=== PATIENT | female | born 1950 | race Caucasian/White ===

== ENCOUNTER 2022-09-09 12:09 | Emergency (ER) | payer OTHER, SELFPAY ==
[2022-09-09 12:17] VITALS: BP 173/79; PULSE 60; RESP 18; TEMP 36.6; O2SAT 99; BMI 26.5
--- NOTE | 2022-09-09 12:25 | DI.RAD.S_ITS ---
PROCEDURE: XR ANKLE LT MIN 3V INDICATIONS: fall. posterior L ankle swelling TECHNIQUE: 3 views of the ankle were acquired. COMPARISON: None. FINDINGS: Bones: No fractures or dislocations. Ankle mortise is normally aligned. No suspicious bony lesions. Soft tissues: Large tibiotalar joint effusion. Achilles tendon appears normal. IMPRESSION: Large tibiotalar effusion, without displaced fracture. Dictated by: Dilan Craig M.D. on 09/09/2022 at 13:57 Approved by: Dilan Craig M.D. on 09/09/2022 at 13:57
--- NOTE | 2022-09-09 13:20 | ED_ITS ---
HPI - Extremity Injury (Lower) <Luis Grajeda PA-C - Last Filed: 09/09/22 18:10> General Chief Complaint: Extremity Injury, Lower Stated Complaint: fell, lt ankle injury Time Seen by Provider: 09/09/22 13:10 Source: patient and family Mode of arrival: Wheelchair History of Present Illness HPI Narrative: This is a 72-year-old female presents emergency department due to left ankle pain onset just prior to arrival. States that she was walking when her ankle? just slip?. She is having some left ankle pain now. Denies any numbness, weakness, or any other concerning signs or symptoms. Some pain to the lateral malleolus of the left ankle. Related Data Allergies Allergy/AdvReac Type Severity Reaction Status Date / Time lisinopril AdvReac Intermediate Cough Verified 09/09/22 12:25 Review of Systems <Luis Grajeda PA-C - Last Filed: 09/09/22 18:10> Review of Systems Narrative: GENERAL: Denies chills, fatigue, malaise, fever, sweats. HEENT: Denies sinus pain, ear pain, sore throat, difficulty swallowing, dizziness. RESPIRATORY: Denies dyspnea, cough, wheezing, hemoptysis, sputum. CARDIOVASCULAR: Denies chest pain, palpitations, orthopnea, edema, GASTROINTESTINAL: Denies nausea, vomiting, abdominal pain, diarrhea, constipat ion, melena. : Denies dysuria, frequency, incontinence, hematuria, urinary retention. MUSCULOSKELETAL: Left ankle pain SKIN: Denies rash, skin lesions, or other NEUROLOGIC: Denies weakness, headache, numbness, change in speech, confusion, seizures, incoordination. PSYCHIATRIC: No concerning psychosocial issues. 12 point review of systems is negative except for those stated above Patient History <Luis Grajeda PA-C - Last Filed: 09/09/22 18:10> Social History Smoking Status: Never smoker Smoking Status: Never smoker alcohol intake frequency: 0-2 drinks per day Substance Use Type: does not use Exam <ALTAGRACIA Bellamy Last Filed: 09/09/22 18:10> Narrative Exam Narrative: GENERAL: Well-developed patient, in mild distress. HEAD: Atraumatic. Normocephalic. EYES: Pupils equal round and reactive. Extraocular motions intact. No scleral icterus. No injection or drainage. ENT: Nose without bleeding, purulent drainage. Throat without erythema, tonsillar hypertrophy or exudate. Airway patent. NECK: Trachea midline. Non tender CARDIOVASCULAR: Regular rate and rhythm without murmurs, gallops, or rubs. RESPIRATORY: Clear to auscultation. Breath sounds equal bilaterally. No wheezes, rales, or rhonchi. GASTROINTESTINAL: Abdomen soft, non-tender, nondistended. EXTREMITIES: Tenderness to palpation to the lateral malleolus. Neurovascularly intact throughout. 2+ dorsalis pedis pulses. No crepitus BACK: Nontender without deformity or crepitance. No flank tenderness. NEURO: AOx3. SKIN: No rash or erythema of visible areas Initial Vital Signs Initial Vital Signs: Vital Signs Temperature 97.9 F 09/09/22 12:17 Pulse Rate 60 09/09/22 12:17 Respiratory Rate 18 09/09/22 12:17 Blood Pressure 173/79 H 09/09/22 12:17 Pulse Oximetry 99 09/09/22 12:17 Oxygen Delivery Method Room Air 09/09/22 12:17 <DO Beka Rg Last Filed: 09/09/22 19:02> Initial Vital Signs Initial Vital Signs: Vital Signs Temperature 97.9 F 09/09/22 12:17 Pulse Rate 60 09/09/22 12:17 Respiratory Rate 18 09/09/22 12:17 Blood Pressure 173/79 H 09/09/22 12:17 Pulse Oximetry 99 09/09/22 12:17 Oxygen Delivery Method Room Air 09/09/22 12:17 Course <Luis Grajeda PA-C - Last Filed: 09/09/22 18:10> Orders Ordered: ED Orders 09/09/22 12:25 XR ankle LT min 3V Stat Vital Signs Vital signs: Vital Signs - 8 hr 09/09/22 12:17 Temperature 97.9 F Pulse Rate 60 Respiratory Rate 18 Blood Pressure 173/79 H Pulse Oximetry 99 Oxygen Delivery Method Room Air <DO Beka Rg Last Filed: 09/09/22 19:02> Orders Ordered: ED Orders 09/09/22 12:25 XR ankle LT min 3V Stat Vital Signs Vital signs: Vital Signs - 8 hr 09/09/22 12:17 Temperature 97.9 F Pulse Rate 60 Respiratory Rate 18 Blood Pressure 173/79 H Pulse Oximetry 99 Oxygen Delivery Method Room Air MDM - Extremity Injury (Lower) <Luis Grajeda PA-C - Last Filed: 09/09/22 18:10> Imaging Data Extremity x-ray #1: Radiologist's Impression: [address] [id number] ReportSigned Patient: Donna Jennings#: [id number]: 1950cct:[id number]/Sex: 72 / FDate of Service: 09/09/22Loc: EDAccession Number: [id number] Procedure: XR ankle LT min 3V Ordering Provider: Shu Eli D.O. PROCEDURE: XR ANKLE LT MIN 3V INDICATIONS: fall. posterior L ankle swelling TECHNIQUE: 3 views of the ankle were acquired. COMPARISON: None. FINDINGS: Bones: No fractures or dislocations. Ankle mortise is normally aligned. No suspicious bony lesions. Soft tissues: Large tibiotalar joint effusion. Achilles tendon appears normal. IMPRESSION: Large tibiotalar effusion, without displaced fracture. Dictated by: Dilan Craig M.D. on 09/09/2022 at 13:57 Approved by: Dilan Craig M.D. on 09/09/2022 at 13:57 MDM Narrative Medical decision making narrative: MDM * differential diagnosis includes but not limited to fibula fracture, tibia fracture, ankle sprain * Prior records reviewed: Patient has not been here for similar complaints in the past * My lab interpretation: None obtained * My imgaing interpretation: No bony abnormality on x-ray * Clinical Decision Rules/Scores evaluated: None * Independent discussions with: None ED Course: This is a 72-year-old female presents emergency department after rolling her left ankle. She was neurovascularly intact throughout. X-ray shows no evidence of any fractures. Patient's ankle was wrapped and given crutches and recommended RICE Shared Decision Making: Discussed plan the patient is comfortable with plan Social Considerations: None Disposition: Discharged home Discharge Plan Departure Patient Disposition: Home Clinical Impression: Ankle sprain Instructions: Ankle Sprain Activity Restrictions/Additional Instructions: Thank you for coming to the [facility] Emergency Department today. As we discussed your x-ray shows no evidence of any fractures. This is likely just an ankle sprain that should improve over the next few days with plenty of rest, ice, compression, and elevation. He may use Tylenol as needed for the pain. I hope you feel better soon. Stand Alone Forms: Patient Portal/API <Shu Eli DO - Last Filed: 09/09/22 19:02> Cosign ED Attending Yolanda Attestation: I was immediately available in the department for consultation.
== END 2022-09-09 14:28 | disposition home or self-care (01) ==
PROVIDERS: Emergency Provider Physician Assistant Medical
DX: S93.402A Sprain of unspecified ligament of left ankle, initial encounter (principal); X50.1XXA Overexertion from prolonged static or awkward postures, initial encounter; Y93.01 Activity, walking, marching and hiking
CPT/HCPCS: 73610; 99283